=== PATIENT | male | born 1970 | race Caucasian/White ===

== ENCOUNTER 2020-10-01 07:53 | Outpatient (CLI) | payer OTHER ==
--- NOTE | 2020-10-01 17:12 | RAD ---
LEFT ELBOW FOUR VIEWS: Date: 10-01-2020 FINDINGS: No fracture or joint effusion was seen. At most, there may be a little bony spurring on the coronoid process of the ulna. The joint otherwise appears normal. An incidental finding in this patient is a supracondylar spur located on the medial side of the dista l humerus. This can sometimes cause median nerve entrapment. Thus, if he were to ever have median olimpia ropathy, this might be looked at further. It has no real significance otherwise. IMPRESSION: 1. No acute findings. 2. Supracondylar spur of the distal humerus. POS: HOME
== END 2020-10-01 07:54 | disposition home or self-care (01) ==
LOC: BURRAD 07:53
PROVIDERS: ATTEND Physician Assistant
DX: M25.522 Pain in left elbow (principal); M77.8 Other enthesopathies, not elsewhere classified